=== PATIENT | female | born 1990 | race Caucasian/White ===

== ENCOUNTER 2016-05-13 17:03 | Emergency (ER) | payer OTHER ==
[~2016-05-13] VITALS: Ht 154.9 cm; Wt 65.8 kg
[~2016-05-13 17:03] MED LIST: MIRENA1 EACH; PERCOCET 5-3251 EACH PO; PREDNISONE10 M2 PO
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
[2016-05-13 19:59] VITALS: BP 138/76
[2016-05-13] MEDS ORDERED: ADVIL LIQUI-GE200 M1 PO (20:35)
--- NOTE | 2016-05-13 20:44 | RADIOLOGY REPORT ---
EXAMINATION: XR LUMBOSACRAL SPINE CLINICAL INFORMATION: Back pain. Lumbar fusion. COMPARISON: Lumbar spine 11/18/2015 TECHNIQUE: AP and lateral views of the lumbosacral spine were obtained. FINDINGS: Status post fusion with transpedicular screw at L4-S1 the pedicles bilaterally. Hardware intact. Marked lordosis of the lower lumbar spine similar prior study. No acute abnormality. No fracture or hardware failure. The spondylolisthesis of L5 on S1 is unchanged. IUD in the central pelvis soft tissues. IMPRESSION: Status post fusion L4 to sacrum. Hardware intact.
[2016-05-13] MEDS ORDERED: PERCOCET 5-3251 EACH PO (20:53)
== END 2016-05-13 21:08 ==
LOC: ERH 17:03
DX: S39.012A Strain of muscle, fascia and tendon of lower back, initial encounter (principal); V49.50XA Passenger injured in collision with unspecified motor vehicles in traffic accident, initial encounter
CPT/HCPCS: 72100; 81025